=== PATIENT | male | born 1965 | race Caucasian/White ===

== ENCOUNTER 2018-01-05 05:43 | Emergency (ER) | payer OTHER ==
--- NOTE | 2018-01-05 06:55 | EDM.PDOC ---
ED HPI GENERAL MEDICAL PROBLEM - General Chief Complaint: Lower Extremity Injury/Pain Stated Complaint: FELL ON ICE LEFT KNEE INJURIED Time Seen by Provider: 01/05/18 06:04 Source of Information: Reports: Patient History Limitations: Reports: No Limitations - History of Present Illness INITIAL COMMENTS - FREE TEXT/NARRATIVE: The patient states that he was taking the trash out around 05:15 this morning, when he slipped on ice and fell. He states that his left leg went out in front of him, and he felt a pop in his left knee area. He now presents with pain and swelling to his left quadriceps tendon area. No prior injury to the left knee. The patient is otherwise uninjured. The patient was able to ambulate into the ED on his own. The patient's last oral solid food was around 18:30 last night. The patient's PCP is Dr. Rodarte. Left Knee Pain Score (Numeric/FACES): 3 Past Medical History Gastrointestinal History: Reports: GERD Endocrine/Metabolic History: Reports: Obesity/BMI 30+ Social & Family History - Family History Family Medical History: Noncontributory - Tobacco Use Smoking Status *Q: Never Smoker - Caffeine Use Caffeine Use: Reports: None - Alcohol Use Alcohol Use History: Yes Days Per Week of Alcohol Use: 4 Number of Drinks Per Day: 1 Total Drinks Per Week: 4 Alcohol Use Frequency: Socially - Recreational Drug Use Recreational Drug Use: No - Living Situation & Occupation Living situation: Reports: , Alone Occupation: Employed ([employer]) Review of Systems - Review of Systems Review Of Systems: ROS reveals no pertinent complaints other than HPI. ED EXAM, GENERAL - Physical Exam Exam: See Below Exam Limited By: No Limitations General Appearance: Alert, WD/WN, No Apparent Distress Extremities: Other (There is considerable swelling and tenderness to palpation over the left quadriceps tendon, and the patella feels to be inferior to its appropriate position, when compared to the right, when the patient's left lower extremity is extended. No other visible abnormalities, such as erythema, ecchymosis, or abrasion. Pain is induced and the quadriceps tendon area with passive flexion of the knee, and the patient is unable to extend his knee, most likely due to pain. Neurovascular status of the left lower extremity is intact. ) Course - Vital Signs Last Recorded V/S: Last Vital Signs Temp 36.2 C 01/05/18 05:50 Pulse 89 01/05/18 05:50 Resp 14 01/05/18 05:50 BP 145/92 H 01/05/18 05:50 Pulse Ox 99 01/05/18 05:50 - Orders/Labs/Meds Orders: Active Orders 24 hr Category Date Time Status Knee 3V Lt [CR] Stat Exams 01/05/18 06:07 Taken - Re-Assessments/Exams Free Text/Narrative Re-Assessment/Exam: 01/05/18 06:47 3-view radiographs of the left knee appear to be normal. No fracture or dislocation identified. No patella baja. Formal read per the Radiologist pending. Although the radiographs of the left knee appear to be normal, clinically, I am concerned about a quadriceps tendon injury. Case discussed with Dr. Franklin at 06:41. He advises that we put a knee immobilizer on the patient, and get an outpatient MRI as soon as possible. He will be in clinic this morning, and can see the patient. 01/05/18 07:01 The patient was offered pain medication, but he declined. The knee immobilizer was placed on the patient. A note for work was offered, but declined. Outpatient MRI requisition has been submitted. Departure - Departure Time of Disposition: 06:55 Disposition: Home, Self-Care 01 Condition: Fair Clinical Impression: Injury of quadriceps tendon - Discharge Information Referrals: Benito Franklin MD [Physician] - Additional Instructions: You were seen in the emergency room after slipping on ice, falling, and injuring your left knee area. Workup in the ER included x-rays of the knee, which were normal, however, there is concern that you have injured your quadriceps tendon. A knee immobilizer has been placed over your left knee. This should be applied each morning, and removed at bedtime. Follow-up with the Orthopedic Surgeon Dr. Franklin in his office this morning. A requisition for a MRI of your left knee has been submitted. You will be contacted by the Radiology Department to schedule your MRI. Take [id number] Tylenol or ibuprofen as needed for discomfort. If any other problems, please do not hesitate to return to the ER. - My Orders Last 24 Hours: My Active Orders 01/05/18 06:07 Knee 3V Lt [CR] Stat - Assessment/Plan Last 24 Hours: My Active Orders 01/05/18 06:07 Knee 3V Lt [CR] Stat
--- NOTE | 2018-01-05 08:50 | CR ---
Left knee: AP, lateral and sunrise patellar views of the left knee were obtained. Comparison: No prior knee exam. Medial and lateral joint spaces are maintained in height. Patellofemoral joint appears within normal limits. No acute fracture or dislocation is seen. Incidental spur noted at the attachment of the quadriceps tendon to the patella. Questionable soft tissue swelling within the distal quadriceps tendon. Impression: 1. Questionable soft tissue swelling within the distal quadriceps tendon. Please exclude tendon injury. 2. Incidental spur at the attachment of the quadriceps tendon to the patella. 3. Left knee exam is otherwise unremarkable. Diagnostic code #3
== END 2018-01-05 07:13 | disposition home or self-care (01) ==
LOC: JD.ED 05:43
DX: S76.102A Unspecified injury of left quadriceps muscle, fascia and tendon, initial encounter (principal); W01.0XXA Fall on same level from slipping, tripping and stumbling without subsequent striking against object, initial encounter; S76.112D Strain of left quadriceps muscle, fascia and tendon, subsequent encounter; X58.XXXD Exposure to other specified factors, subsequent encounter
CPT/HCPCS: 73562-26-LT; 73562-LT; 73721-26-LT; 73721-LT; 99283

== ENCOUNTER 2018-01-09 07:59 | Day surgery (SDC) | payer OTHER ==
--- NOTE | 2018-01-09 06:51 | HP ---
DATE OF ADMISSION: 01/09/2018 HISTORY OF PRESENT ILLNESS: This is the first orthopedic outpatient admission for surgery for this 52-year- old male who is being scheduled for a repair of the left quadriceps tendon. The patient had acute rupture secondary to falling on the ice on 01/05/2018, has gone through MRI evaluation with confirmation of the complete tear noted. The patient is now being brought in on an outpatient basis for surgical repair of the tendon structure. Procedure has been outlined to him. He understands the procedure and has consented to it. ALLERGIES: No known drug allergies. PAST MEDICAL HISTORY: The patient has been a stable patient medically. He does have a history of asthma. He denies any history of blood pressure, diabetes, or thyroid-type problems. CURRENT MEDICATIONS: Include Prilosec along with Tylenol and ibuprofen. PAST SURGICAL HISTORY: Positive. He has had previous colonoscopy with anesthesia. Notes no problems or complications with the anesthesia. PHYSICAL EXAMINATION: GENERAL: A well-developed and well-nourished 52-year-old male in moderate distress. HEAD, EYES, EARS, NOSE, AND THROAT: Normocephalic. NECK: Supple. CHEST: Clear. COR: Regular rate. ABDOMEN: Soft. : Intact. MUSCULOSKELETAL: Examination of the left knee reveals positive pain and swelling at superior pole of patella, the patient is unable to hold the left knee in extension, complete loss of strength secondary to the ruptured quadriceps tendon. RADIOGRAPHIC STUDIES: MRI evaluation shows positive rupture of the quadriceps tendon from the superior pole of patella. PLAN: Plan is for the patient to undergo surgical repair of a ruptured quadriceps tendon, left knee. Procedure has been outlined to him. He understands that and has consented to it. MARCELA /[id number]
[~2018-01-09 07:59] MED LIST: Dexamethasone 4 MG/ML SDV ONE; Ketorolac 30 MG/ML SDV ONE; Lactated Ringers 1,000 ML ONE; Midazolam 1 MG/ML 2 ML SDV ONE; Ondansetron 4 MG/2 ML SDV ONE; Propofol 200 MG/20 ML SDV ONE; Rocuronium 50 MG/5 ML Vial ONE; ceFAZolin 1 GM Vial ONE; fentaNYL 250 MCG/5 ML SDV ONE
--- NOTE | 2018-01-09 08:19 | PCM.PREANE ---
Preanesthetic Assessment - Anesthesia/Transfusion/Family Hx Anesthesia History: Prior Anesthesia Without Reaction (colonoscopy) Family History of Anesthesia Reaction: No Transfusion History: No Prior Transfusion(s) Intubation History: Unknown - Review of Systems General: No Symptoms Pulmonary: No Symptoms (History of asthma/has not needed inhaler for 1.5 years) Cardiovascular: No Symptoms Gastrointestinal: No Symptoms (GERD) Neurological: Tingling (CTS bilaterally greater on the right than the left.) Other: Reports: Sinus Problem (congestion noted on occasion.) - Physical Assessment NPO Status Date: 01/08/18 NPO Status Time: 22:00 Pulse: 102 O2 Sat by Pulse Oximetry: 96 Respiratory Rate: 20 Blood Pressure: 160/86 Temperature: 35.7 C Height: 1.93 m Weight: 126 kg ASA Class: 2 Mental Status: Alert & Oriented x3 Airway Class: Mallampati = 2 Dentition: Reports: Normal Dentition, Caries Thyro-Mental Finger Breadths: 4 Mouth Opening Finger Breadths: 3 ROM/Head Extension: Full Lungs: Clear to Auscultation, Normal Respiratory Effort Cardiovascular: Regular Rate, Regular Rhythm, No Murmurs - Lab Values: All labs reviewed and noted and within acceptable ranges to proceed with scheduled procedure. MRSA= negative. - Imaging/EKG Impressions: CXR: negative - Allergies Allergies/Adverse Reactions: Allergies Allergy/AdvReac Type Severity Reaction Status Date / Time bee pollen Allergy Anaphylactic Verified 01/08/18 14:57 Shock cashew nut Allergy Anaphylactic Verified 01/08/18 14:57 Shock - Anesthesia Plan Pre-Op Medication Ordered: None - Acknowledgements Anesthesia Type Planned: General Anesthesia Pt an Appropriate Candidate for the Planned Anesthesia: Yes Alternatives and Risks of Anesthesia Discussed w Pt/Guardian: Yes Pt/Guardian Understands and Agrees with Anesthesia Plan: Yes PreAnesthesia Questionnaire - Past Health History Medical/Surgical History: Denies Medical/Surgical History HEENT History: Reports: None Cardiovascular History: Reports: None Respiratory History: Reports: Asthma, Sleep Apnea Gastrointestinal History: Reports: GERD Genitourinary History: Reports: None RECREATION LEADER History: Reports: None Musculoskeletal History: Reports: Other (See Below) Other Musculoskeletal History: left knee injury Neurological History: Reports: None Psychiatric History: Reports: None Endocrine/Metabolic History: Reports: Obesity/BMI 30+ Hematologic History: Reports: None Immunologic History: Reports: None Oncologic (Cancer) History: Reports: None Dermatologic History: Reports: None - Past Surgical History Head Surgeries/Procedures: Reports: None HEENT Surgical History: Reports: None Cardiovascular Surgical History: Reports: None Respiratory Surgical History: Reports: None GI Surgical History: Reports: Colonoscopy Female Surgical History: Reports: None Male Surgical History: Reports: None Endocrine Surgical History: Reports: None Neurological Surgical History: Reports: None Musculoskeletal Surgical History: Reports: None Oncologic Surgical History: Reports: None Dermatological Surgical History: Reports: None - SUBSTANCE USE Smoking Status *Q: Never Smoker Days Per Week of Alcohol Use: 4 Number of Drinks Per Day: 1 Total Drinks Per Week: 4 Recreational Drug Use History: No - HOME MEDS Home Medications: Home Meds Acetaminophen [Tylenol] 650 mg PO Q6H PRN 01/08/18 [History] EPINEPHrine [Epinephrine] 1 dose IM ONETIME PRN 01/08/18 [History] Ibuprofen/Diphenhydramine Cit [Advil Pm Caplet] 1 - 2 tab PO BEDTIME PRN [History] Omeprazole Magnesium [Prilosec Otc] 20 mg PO DAILY 01/08/18 [History] diphenhydrAMINE [Benadryl] 25 mg PO BEDTIME PRN 01/08/18 [History] - CURRENT (IN HOUSE) MEDS Current Meds: Current Medications Discontinued Medications Cefazolin Sodium (Ancef) Confirm Administered Dose 3 gm .ROUTE .STK-MED ONE Stop: 01/09/18 07:37 Dexamethasone (Dexamethasone) Confirm Administered Dose 8 mg .ROUTE .STK-MED ONE Stop: 01/09/18 07:37 Fentanyl (Sublimaze) Confirm Administered Dose 250 mcg .ROUTE .STK-MED ONE Stop: 01/09/18 07:38 Lactated Ringer's (Ringers, Lactated) Confirm Administered Dose 1,000 mls @ as directed .ROUTE .STK-MED ONE Stop: 01/09/18 07:37 Ketorolac Tromethamine (Toradol) Confirm Administered Dose 30 mg .ROUTE .STK- MED ONE Stop: 01/09/18 07:37 Midazolam HCl (Versed 1 Mg/Ml) Confirm Administered Dose 2 mg .ROUTE .STK-MED ONE Stop: 01/09/18 07:37 Ondansetron HCl (Zofran) Confirm Administered Dose 4 mg .ROUTE .STK-MED ONE Stop: 01/09/18 07:37 Propofol (Diprivan 20 Ml) Confirm Administered Dose 400 mg .ROUTE .STK-MED ONE Stop: 01/09/18 07:37 Rocuronium [place] (Zemuron) Confirm Administered Dose 50 mg .ROUTE .STK-MED ONE Stop: 01/09/18 07:37
[2018-01-09] MEDS ORDERED: Iodine/Sodium Iodide 2% Tincture 30 ML Bottle ONE (08:20)
[2018-01-09] MEDS ORDERED: Sodium Chloride 0.9% 10 ML Syringe FLUSH PRN (08:45)
[2018-01-09] MEDS ORDERED: Lidocaine 1%/Sod Bicarbonate in NS 8.4% 1 ML Syringe IDERM ONE (08:45)
[2018-01-09] MEDS ORDERED: Lactated Ringers 1,000 ML IV SCH (08:45)
[2018-01-09] MEDS ORDERED: Ondansetron 4 MG/2 ML SDV IVPUSH PRN ×2 (08:52→11:26)
[2018-01-09] MEDS ORDERED: Acetaminophen/oxyCODONE 325-5 MG Tab PO PRN (08:52)
[2018-01-09] MEDS ORDERED: Ketorolac 30 MG/ML SDV IVPUSH PRN (08:52)
[2018-01-09] MEDS ORDERED: Cyclobenzaprine 10 MG Tab PO PRN (08:52)
[2018-01-09] MEDS ORDERED: Morphine 15 MG Tab.ER PO SCH (09:00)
[2018-01-09] MEDS ORDERED: Bupivacaine 0.5%/EPINEPHrine 1:200,000 50 ML MDV ONE (09:19)
[2018-01-09] MEDS ORDERED: HYDROmorphone 1 MG/ML Syringe ONE ×2 (09:31→10:32)
[2018-01-09] MEDS ORDERED: ceFAZolin 1 GM Vial ONE (09:39)
[2018-01-09] MEDS ORDERED: Ketamine 500 mg/10 ML MDV ONE (10:10)
[2018-01-09] MEDS ORDERED: diphenhydrAMINE 50 MG/ML SDV IVPUSH PRN (11:26)
[2018-01-09] MEDS ORDERED: Meperidine PF 50 MG/ML Syringe IVPUSH PRN (11:26)
[2018-01-09] MEDS ORDERED: fentaNYL 100 MCG/2 ML SDV IVPUSH PRN (11:26)
--- NOTE | 2018-01-09 11:26 | PCM.POSTAN ---
POST ANESTHESIA ASSESSMENT - MENTAL STATUS Mental Status: Alert, Oriented - VITAL SIGNS Pulse Rate: 86 SaO2: 97 Resp Rate: 12 Blood Pressure: 163/104 Temperature: 36.5 C - RESPIRATORY Respiratory Status: Respiratory Rate WNL, Airway Patent, O2 Saturation Stable, Supplemental Oxygen - CARDIOVASCULAR CV Status: Pulse Rate WNL, Blood Pressure Stable - GASTROINTESTINAL GI Status: No Symptoms - PAIN Pain Score: 0 - POST OP HYDRATION Hydration Status: Adequate & Stable
[2018-01-09] MEDS ORDERED: HYDROmorphone 0.5 MG/0.5 ML Syringe IVPUSH ONE (12:30)
--- NOTE | 2018-01-09 13:15 | PCM48HPAN ---
Post Anesthesia Note - EVALUATION WITHIN 48HRS OF ANESTHETIC Vital Signs in Normal Range: Yes Patient Participated in Evaluation: Yes Respiratory Function Stable: Yes Airway Patent: Yes Cardiovascular Function Stable: Yes Hydration Status Stable: Yes Pain Control Satisfactory: Yes Nausea and Vomiting Control Satisfactory: Yes Mental Status Recovered: Yes
--- NOTE | 2018-01-10 07:55 | OR ---
DATE OF OPERATION: 01/09/2018 SURGEON: Benito Franklin MD PREOPERATIVE DIAGNOSIS: Acute rupture, quadriceps tendon, left knee. POSTOPERATIVE DIAGNOSIS: Acute rupture, quadriceps tendon, left knee. ANESTHESIA: General. OPERATION PERFORMED: Open quadriceps tendon repair of left knee. DESCRIPTION OF PROCEDURE: The patient was taken to the operating room, placed in the supine position, placed under general anesthesia. The left leg was prepped and draped by standard technique, and after prepping and draping, the operation proceeded with evaluation of the left knee injury area, the superior pole of patella. A midline incision was used beginning approximately 2 cm below the inferior pole of the patella, extending proximally to approximately 4 cm above the superior pole. Penetration was made through the skin and subcutaneous tissues. These were dissected down to the surrounding fascia on the left knee. The area of the ruptured tendon was then exposed, and debridement was then carried out. The patella was then isolated such that both the medial and lateral edges could be easily identified and the inferior pole. The operation proceeded where the rupture occurred off the superior pole of the patella. This looked more like a degenerative-type tear. There was still some remaining portion of the quadriceps tendon remaining on the very inferior portion of the patella extending proximally. This was a very thin strip of fascial-type tissue. The operation proceeded with debridement of the superior pole down to bleeding bone level such that the reattachment of the quadriceps tendon would be into a bleeding bony surface. The quadriceps tendon itself was then freshened. The edges were then trimmed very lightly to gain a good idea of the exposure of the tendon. Once that was identified, the operation proceeded with placement of two #5 FiberWires, one on the medial half of the tendon and one on the lateral half of the tendon, using a Krackow suture, and once they were in place, the quadriceps tendon was then brought down to the level of reattachment. Once that was identified, 3 drill holes were placed paralleling through the patella down to the inferior pole, and then the operation proceeded with placement of the sutures from the repaired quadriceps tendon through the drill holes using the suture passer with one suture through the medial drill hole, 2 sutures through the central, and one suture through the lateral. Just on gentle stretching, the tendon approximated very nicely into the cortical bone more or less very minimal trough-type situation on the superior pole. The operation then proceeded with two #5 FiberWire being placed on each corner, anchoring the fascia of the patella to the fascia of the quadriceps tendon just to the medial and lateral side of the Krackow suture repair. Once those sutures were in place, the operation proceeded with extension of the knee. The quadriceps tendon was then brought down to the superior pole. The sutures were then tied distally on the inferior pole, anchoring the quadriceps tendon, and then this repair was then secured with 2 medial and lateral #5 FiberWire to further reinforce and anchor the tendon. #1 Vicryl was then used to close the disruption of the more medial- type tissues and also lateral-type tissues. This created a nice reapproximation. The area wentthrough a final repair using 3-0 Vicryl across the top superior to make a nice, smooth closure. The area was thoroughly irrigated all through the procedure, and irrigation the final was then made, and palpation found no rent in the quadriceps muscle near the detachment area. It was a very firm attachment. The flexion of the knee was to approximately 45 degrees with minimal problems and no apparent stress to the repair. Operation then proceeded with final irrigation of the joint area. The deep tissues were closed with #1 Vicryl, subcutaneous tissue with 2-0 Vicryl, and skin with skin todd. A Flores dressing with a knee immobilizer was applied. The patient tolerated the procedure well. He left the operating room in stable condition to his room for recovery. ESTIMATED BLOOD LOSS: [facility] /[id number]
== END 2018-01-09 13:30 | disposition home or self-care (01) ==
LOC: JD.SDS 07:59
PROVIDERS: ATTEND Specialist
DX: S76.112A Strain of left quadriceps muscle, fascia and tendon, initial encounter (principal); K21.9 Gastro-esophageal reflux disease without esophagitis; R03.0 Elevated blood-pressure reading, without diagnosis of hypertension; J45.20 Mild intermittent asthma, uncomplicated; G47.30 Sleep apnea, unspecified; E66.9 Obesity, unspecified; Z68.35 Body mass index [BMI] 35.0-35.9, adult; W00.0XXA Fall on same level due to ice and snow, initial encounter; Z91.038 Other insect allergy status; Z79.899 Other long term (current) drug therapy; Z91.018 Allergy to other foods
CPT/HCPCS: 27385; A9270; J0690; J1100; J1170; J1885; J2250; J2405; J3010; J7120; J2704